=== PATIENT | female | born 1995 | race Caucasian/White ===

== ENCOUNTER 2017-11-12 22:18 | Emergency (ER) | payer OTHER ==
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
--- NOTE | 2017-11-13 09:26 | Diagnostic Imaging Report ---
Right hand 3 views Indication: Trauma Comparison: none Findings: There is a age-indeterminate minimally displaced fracture involving the base of the fourth mid phalanx. There may have been soft tissue injury along the fourth mid to distal phalangeal region. No dislocation. Impression: Age-indeterminate nondisplaced fracture involving the base of the fourth mid phalanx. There may have been soft tissue injury in this region more distally along the mid to distal phalangeal region. Please correlate clinically. In the setting of trauma, if clinical symptoms persist and there is continued concern for an occult fracture, follow up exams in 5-7 days is suggested.
== END 2017-11-12 23:30 | disposition home or self-care (01) ==
LOC: ER 22:18
DX: S69.91XA Unspecified injury of right wrist, hand and finger(s), initial encounter (principal); W19.XXXA Unspecified fall, initial encounter; Y93.89 Activity, other specified; Y92.89 Other specified places as the place of occurrence of the external cause; Y99.8 Other external cause status
CPT/HCPCS: 73130-TC-RT; 81025-TC; Z7502